=== PATIENT | male | born 1935 | race Caucasian/White ===

== ENCOUNTER 2018-11-30 11:24 | Observation (INO) | payer OTHER ==
--- NOTE | 2018-11-30 11:33 | EDPHY ---
H & P Time Seen by Provider: 11/30/18 11:25 HPI/ROS: CHIEF COMPLAINT: Passed out HISTORY OF PRESENT ILLNESS: Patient had syncope today and was brought in by EMS. They were called at 10:50 a.m.. Per EMS when they arrived his heart rate was in the 30s with a blood pressure of 64 systolic. He awakened with pacing; no atropine was given because IV access was problematic, he arrives with an IO in place and pacing has been stopped with a heart rate in the 50s. Patient remembers feeling dizzy and lightheaded like he was going to pass out and then the ambulance. Currently is asymptomatic, when asked him how he is feeling he says "the center of attention." REVIEW OF SYSTEMS: Eye: no change in vision ENT: no sore throat Cardiac: No chest pain Pulmonary: no cough or SOB Abdomen: no vomiting, diarrhea, abdominal pain Musculoskeletal: no back pain Skin: no rash Neuro: no headache Constitutional: no fever : no urinary symptoms A comprehensive 10 point review of systems is otherwise negative aside from elements mentioned in the history of present illness. PAST MEDICAL HISTORY: Admission in July of 2016 for syncope. Cardiology notes "consideration of more aggressive evaluation for 2nd event."Includes diabetes and hypothyroid. Social history: Nonsmoker General Appearance: Alert and conversant, cooperative. Eyes: No scleral icterus. ENT, Mouth: Normal mucous membranes. Respiratory: Normal respiratory effort, breath sounds equal, lungs are clear to auscultation. Cardiovascular: Regular rate and rhythm. No murmur. Gastrointestinal: Abdomen is soft and non tender. Neurological: Alert, face symmetric, normal motor and sensory in extremities. Skin: Warm and dry, no rashes. Musculoskeletal: No peripheral edema. No calf tenderness and no spinal tenderness. Psychiatric: Not agitated. Emergency Department course/MDM: Patient presents with syncope and bradycardia and hypotension by EMS on arrival. Currently in sinus rhythm. Plan for admission and cardiology consultation for consideration for pacemaker. His medications do not include anything that would account for low heart rate. 1145: Discussed with Dr. Plummer from Cardiology; admission hospitalist service he will consult. Smoking Status: Never smoked Constitutional: Initial Vital Signs Temperature (C) 36.8 C 11/30/18 11:27 Heart Rate 55 L 11/30/18 11:27 Respiratory Rate 16 11/30/18 11:27 Blood Pressure 162/65 H 11/30/18 11:27 O2 Sat (%) 100 11/30/18 11:27 O2 Delivery Mode Room Air Allergies/Adverse Reactions: No Known Allergies Allergy (Unverified 12/17/09 14:32) Home Medications: Medication Instructions Recorded Aspirin [Aspirin 81mg (*)] 81 mg PO BID 07/07/16 Atorvastatin Calcium [Lipitor 10 10 mg PO HS 07/07/16 mg (*)] Donepezil HCl [Aricept] 10 mg PO HS 07/07/16 Levothyroxine [Synthroid 125 mcg 125 mcg PO DAILY06 07/07/16 (*)] Multivitamins [Multivitamin (*)] 1 each PO DAILY 07/07/16 metFORMIN HCL [Metformin HCl ER] 500 mg PO BIDMEAL 07/07/16 Fosinopril 20mg Tablet 20 mg PO DAILY 11/30/18 Medical Decision Making - Diagnostics Imaging Results: Imaging Impressions Chest X-Ray 11/30/18 11:33 Impression: Suspect airways disease with no superimposed acute abnormality identified. Imaging: I viewed and interpreted images myself Differential Diagnosis: Differential diagnosis considered for syncope including but not limited to vasovagal syncope, arrhythmia, dehydration, and blood loss. Consult/Admit Bed Type: [place] [id number] - Data Points Laboratory Results: Laboratory Results 11/30/18 11:30 11/30/18 11:30 11/30/18 11/30/18 11/30/18 11:33 11:31 11:30 WBC RBC Hgb POC Hgb 14.3 gm/dL gm/dL (13.7-17.5) Hct POC Hct 42 % % (40-51) MCV MCH MCHC RDW Plt Count MPV Neut % (Auto) Lymph % (Auto) [place] % (Auto) Eos % (Auto) Baso % (Auto) Nucleat RBC Rel Count Absolute Neuts (auto) Absolute Lymphs (auto) Absolute Monos (auto) Absolute Eos (auto) Absolute Basos (auto) Absolute Nucleated RBC Immature Gran % Immature Gran # POC Sodium 142 mEq/L mEq/L (135-145) Sodium 138 mEq/L mEq/L (135-145) POC Potassium 4.1 mEq/L mEq/L (3.3-5.0) Potassium 4.9 mEq/L mEq/L (3.5-5.2) POC Chloride 104 mEq/L mEq/L (97-110) Chloride 105 mEq/L mEq/L (97-110) Carbon Dioxide 26 mEq/l mEq/l (22-31) POC Total CO2 27 mEq/L mEq/L (22-31) Anion Gap 7 mEq/L mEq/L (6-14) POC BUN 17 mg/dL mg/dL (7-23) BUN 19 mg/dL mg/dL (7-23) Creatinine 0.9 mg/dL mg/dL (0.7-1.3) POC Creatinine 0.9 mg/dL mg/dL (0.7-1.3) Estimated GFR > 60 Glucose 139 mg/dL H mg/dL (70-100) POC Glucose 140 mg/dL H mg/dL (70-100) Calcium 9.3 mg/dL mg/dL (8.5-10.4) POC Troponin I 0.01 ng/mL ng/mL (0.00-0.08) 11/30/18 11:30 WBC 9.50 10^3/uL 10^3/uL (3.80-9.50) RBC 4.81 10^6/uL 10^6/uL (4.40-6.38) Hgb 14.0 g/dL g/dL (13.7-17.5) POC Hgb Hct 42.1 % % (40.0-51.0) POC Hct MCV 87.5 fL fL (81.5-99.8) MCH 29.1 pg pg (27.9-34.1) MCHC 33.3 g/dL g/dL (32.4-36.7) RDW 15.1 % % (11.5-15.2) Plt Count 221 10^3/uL 10^3/uL (150-400) MPV 11.4 fL fL (8.7-11.7) Neut % (Auto) 68.3 % % (39.3-74.2) Lymph % (Auto) 19.3 % % (15.0-45.0) [place] % (Auto) 10.6 % % (4.5-13.0) Eos % (Auto) 0.9 % % (0.6-7.6) Baso % (Auto) 0.3 % % (0.3-1.7) Nucleat RBC Rel Count 0.0 % % (0.0-0.2) Absolute Neuts (auto) 6.48 10^3/uL 10^3/uL (1.70-6.50) Absolute Lymphs (auto) 1.83 10^3/uL 10^3/uL (1.00-3.00) Absolute Monos (auto) 1.01 10^3/uL H 10^3/uL (0.30-0.80) Absolute Eos (auto) 0.09 10^3/uL 10^3/uL (0.03-0.40) Absolute Basos (auto) 0.03 10^3/uL 10^3/uL (0.02-0.10) Absolute Nucleated RBC 0.00 10^3/uL 10^3/uL (0-0.01) Immature Gran % 0.6 % % (0.0-1.1) Immature Gran # 0.06 10^3/uL 10^3/uL (0.00-0.10) POC Sodium Sodium POC Potassium Potassium POC Chloride Chloride Carbon Dioxide POC Total CO2 Anion Gap POC BUN BUN Creatinine POC Creatinine Estimated GFR Glucose POC Glucose Calcium POC Troponin I Point of Care Test Results: Chemistry 11/30/18 11/30/18 11:33 11:31 POC Sodium 142 mEq/L mEq/L (135-145) POC Potassium 4.1 mEq/L mEq/L (3.3-5.0) POC Chloride 104 mEq/L mEq/L (97-110) POC Total CO2 27 mEq/L mEq/L (22-31) POC BUN 17 mg/dL mg/dL (7-23) POC Creatinine 0.9 mg/dL mg/dL (0.7-1.3) POC Glucose 140 mg/dL H mg/dL (70-100) POC Troponin I 0.01 ng/mL ng/mL (0.00-0.08) ISTAT H&H 11/30/18 11:33 POC Hgb 14.3 gm/dL gm/dL (13.7-17.5) POC Hct 42 % % (40-51) Departure - Departure Disposition: [facility] Inpatient Acute Clinical Impression: Bradycardia Syncope Qualifiers: Syncope type: unspecified Qualified Code(s): R55 - Syncope and collapse Condition: Good
[2018-11-30 12:03] LABS: PLATELET COUNT 221 10^3/uL (150-400)
[2018-11-30] MEDS ORDERED: ONDANSETRON DISINTEGRATING 4 MG TAB PO PRN (12:03)
[2018-11-30] MEDS ORDERED: ACETAMINOPHEN 325 MG TAB PO PRN (12:03)
[2018-11-30] MEDS ORDERED: ONDANSETRON 4 MG/2 ML VIAL IVP PRN (12:03)
--- NOTE | 2018-11-30 12:26 | CPEKG ---
Test Reason : OPEN Blood Pressure : / mmHG Vent. Rate : 058 BPM Atrial Rate : 058 BPM P-R Int : 191 ms QRS Dur : 095 ms QT Int : 463 ms P-R-T Axes : 072 -36 045 degrees QTc Int : 455 ms Sinus rhythm Left axis deviation Confirmed by Joseph Kasper ([id number]) on 11/30/2018 12:26:09 PM Referred By: PHYSICIAN ED Confirmed By:Joseph Kasper
--- NOTE | 2018-11-30 13:57 | PDGENHP ---
History and Physical - Chief Complaint syncope - History of Present Illness 83 yo male with h/o dementia, htn, hyperlipidemia presents to ED after near syncopal event while at [facility]. He is a poor historian given his poor memory and history is obtained by his . She says he reported feeling lightheaded and dizzy at [facility] today and thus sat down. He later became diaphoretic and unresponsive, but did not lose tone. His eyes remained open. Given his decreased mentation and clamminess, he was taken to the floor by leaning back his chair with his legs up. A physician came to his side and noted he had a slow HR by palpation of his carotid pulse. EMS was called and his HR was found to be in the 30's with SBP 64. They had difficulty obtaining IV access and an IO line was placed followed by administration of fluids. He was noted to be bradycardic, but no rhythm strips are available from EMS. EMS initiated pacing and upon arrival to the ED, pacing was discontinued and his HR was in the 50's. At the time of my evaluation, his SBP is 160's and HR in the 60's. He feels well. Denies CP, SOB, or dizziness. Of note, he has had 2 prior episodes of syncope in the past 2 years. In the ED, cardiology consult was obtained and he is admitted to the PCU for further evaluation and management. History Information - Allergies/Home Medication List Allergies/Adverse Reactions: No Known Allergies Allergy (Unverified 12/17/09 14:32) Home Medications: Aspirin [Aspirin 81mg (*)] 81 mg PO BID 07/07/16 [Last Taken 07/07/16] Atorvastatin Calcium [Lipitor 10 mg (*)] 10 mg PO HS 07/07/16 [Last Taken ] Donepezil HCl [Aricept] 10 mg PO HS 07/07/16 [Last Taken 07/06/16] Levothyroxine [Synthroid 125 mcg (*)] 125 mcg PO DAILY06 07/07/16 [Last Taken ] Multivitamins [Multivitamin (*)] 1 each PO DAILY 07/07/16 [Last Taken 07/07/16] metFORMIN HCL [Metformin HCl ER] 500 mg PO BIDMEAL 07/07/16 [Last Taken 07/07/16 ] Fosinopril 20mg Tablet 20 mg PO DAILY 02/24/19 [Last Taken Unknown] I have personally reviewed and updated: family history, medical history, social history, surgical history - Past Medical History diabetes type 2, hypertension, hyperlipidemia Additional medical history: Hypothyroidism. Dementia - Surgical History Reports: appendectomy - Family History Positive for: non-pertinent - Social History Smoking Status: Never smoked Additional social history: , lives independently Review of Systems Review of Systems: ROS: 10pt was reviewed & negative except for what was stated in HPI & below Physical Exam Physical Exam: Temp Pulse Resp BP Pulse Ox 36.4 C 61 18 167/76 H 96 11/30/18 12:44 11/30/18 13:04 11/30/18 13:04 11/30/18 13:04 11/30/18 13:04 Constitutional: no apparent distress Eyes: PERRL Ears, Nose, Mouth, Throat: moist mucous membranes Cardiovascular: regular rate and rhythym, systolic murmur Respiratory: no respiratory distress, clear to auscultation Gastrointestinal: normoactive bowel sounds, soft, non-tender abdomen Skin: warm Musculoskeletal: full muscle strength Neurologic: AAOx3 Psychiatric: interacting appropriately, poor memory Lab Data & Imaging Review 11/30/18 11:30 11/30/18 11:30 WBC 9.50 10^3/uL (3.80-9.50) 11/30/18 11:30 RBC 4.81 10^6/uL (4.40-6.38) 11/30/18 11:30 Hgb 14.0 g/dL (13.7-17.5) 11/30/18 11:30 POC Hgb 14.3 gm/dL (13.7-17.5) 11/30/18 11:33 Hct 42.1 % (40.0-51.0) 11/30/18 11:30 POC Hct 42 % (40-51) 11/30/18 11:33 MCV 87.5 fL (81.5-99.8) 11/30/18 11:30 MCH 29.1 pg (27.9-34.1) 11/30/18 11:30 MCHC 33.3 g/dL (32.4-36.7) 11/30/18 11:30 RDW 15.1 % (11.5-15.2) 11/30/18 11:30 Plt Count 221 10^3/uL (150-400) 11/30/18 11:30 MPV 11.4 fL (8.7-11.7) 11/30/18 11:30 Neut % (Auto) 68.3 % (39.3-74.2) 11/30/18 11:30 Lymph % (Auto) 19.3 % (15.0-45.0) 11/30/18 11:30 [place] % (Auto) 10.6 % (4.5-13.0) 11/30/18 11:30 Eos % (Auto) 0.9 % (0.6-7.6) 11/30/18 11:30 Baso % (Auto) 0.3 % (0.3-1.7) 11/30/18 11:30 Nucleat RBC Rel Count 0.0 % (0.0-0.2) 11/30/18 11:30 Absolute Neuts (auto) 6.48 10^3/uL (1.70-6.50) 11/30/18 11:30 Absolute Lymphs (auto) 1.83 10^3/uL (1.00-3.00) 11/30/18 11:30 Absolute Monos (auto) 1.01 10^3/uL (0.30-0.80) H 11/30/18 11:30 Absolute Eos (auto) 0.09 10^3/uL (0.03-0.40) 11/30/18 11:30 Absolute Basos (auto) 0.03 10^3/uL (0.02-0.10) 11/30/18 11:30 Absolute Nucleated RBC 0.00 10^3/uL (0-0.01) 11/30/18 11:30 Immature Gran % 0.6 % (0.0-1.1) 11/30/18 11:30 Immature Gran # 0.06 10^3/uL (0.00-0.10) 11/30/18 11:30 POC Sodium 142 mEq/L (135-145) 11/30/18 11:33 Sodium 138 mEq/L (135-145) 11/30/18 11:30 POC Potassium 4.1 mEq/L (3.3-5.0) 11/30/18 11:33 Potassium 4.9 mEq/L (3.5-5.2) 11/30/18 11:30 POC Chloride 104 mEq/L (97-110) 11/30/18 11:33 Chloride 105 mEq/L (97-110) 11/30/18 11:30 Carbon Dioxide 26 mEq/l (22-31) 11/30/18 11:30 POC Total CO2 27 mEq/L (22-31) 11/30/18 11:33 Anion Gap 7 mEq/L (6-14) 11/30/18 11:30 POC BUN 17 mg/dL (7-23) 11/30/18 11:33 BUN 19 mg/dL (7-23) 11/30/18 11:30 Creatinine 0.9 mg/dL (0.7-1.3) 11/30/18 11:30 POC Creatinine 0.9 mg/dL (0.7-1.3) 11/30/18 11:33 Estimated GFR > 60 11/30/18 11:30 Glucose 139 mg/dL (70-100) H 11/30/18 11:30 POC Glucose 140 mg/dL (70-100) H 11/30/18 11:33 Calcium 9.3 mg/dL (8.5-10.4) 11/30/18 11:30 POC Troponin I 0.01 ng/mL (0.00-0.08) 11/30/18 11:31 Visualized and Interpreted Chest x-ray results: Yes Chest X-Ray results: no infiltrate Visualized and Interpreted EKG results: Yes EKG additional interpertation: sinus bradycardia Assessment & Plan Assessment: Near-syncope - Unclear if this was provoked by bradyarrhythmia or if bradycardia was a result of vagal episode. He has been on Fosinopril without prior concerns for hypotension. No AV carey blockers. Aricept can cause syncope in 2% of population. Discussed case with Dr. Plummer, rehabilitation technician. -monitor on telemetry -echo ordered -may warrant stress test prior to dc -hold aricept, decrease mireya inhibitor to 1/2 dose for now -cardiology considering implantation of LINQ monitor vs PPM, will await further data from telemetry and echo Bradycardia - Pt required pacing upon EMS arrival, did not receive Atropine. HR was 50's upon arrival to ED without pacing. -monitor on telemetry -LINQ vs PPM as above Dementia - Hold Aricept as above Hypertension - Halve Fosinopril given profound hypotension earlier today, but BP now elevated Hyperlipidemia - cont statin Hypothyroidism - cont levothyroxine Full code Dispo - obs
--- NOTE | 2018-11-30 14:39 | PDCARCONS ---
Cardiology Consult Reason for Consult: Syncope. Chief Complaint: Loss of consciousness. Requesting Physician: Dr. Joseph Kasper. History of Present Illness: This is a relatively healthy 83-year-old male seen in consultation on the progressive care unit after experiencing an episode of syncope. Apparently, back in 2016, he had a similar event. At that time, he was seen by Dr. Narciso Alcocer. Following that evaluation was recommended the patient be observed. Was also thought, per the patient's note, that his Aricept dose may have been contributing to the patient's episode of syncope. Fortunately, the patient has done well since then. Up until recently he has been feeling well. His is with him today. He struggles with memory difficulties and, per the , generally does not drink enough fluid. He has not been sick recently. Specifically he has not had any fever, chills or sweats nor has he had any episodes of nausea, vomiting or diarrhea. He woke this morning feeling well, had a light breakfast and per their usual routine went to [facility]. In [facility] she noted that he was feeling lightheaded and dizzy. Apparently immediately sat down where it is not clear whether not he lost consciousness or simply became unresponsive. Apparently, he was sitting upright however was not really interacting. There was a physician in the [facility] who came to his aid. Per the 's report she states that he reported the patient had a slow but pounding heart rate. Apparently, EMS was activated and came to the scene. On arrival was noted that his heart rates were in the 30s with a blood pressure 64 systolic. Apparently they had difficulty placing an IV therefore an intraosseous cannula was placed. The patient received fluid resuscitation and apparently transcutaneous pacing during the ambulance ride over to the emergency department. The patient does, however, not recall these events. Unfortunately, there is no documentation of the patient's rhythm from the EMS transport. I did call [facility] however they were not able to locate any printed data. Since arrival here he has been hemodynamically stable. He feels well. His initial ECG demonstrated sinus rhythm. He has not had any bradycardia on telemetry. He has not had any recent medication changes. He does continue to take Aricept for his dementia and fosinopril for blood pressure control. Neither of these medications have been adjusted. His initial troponin was negative. Currently, he states that he feels back to normal. He had a similar event and 2016 as noted above. History Information - Allergies/Home Medication List Allergies/Adverse Reactions: No Known Allergies Allergy (Unverified 12/17/09 14:32) Home Medications: Aspirin [Aspirin 81mg (*)] 81 mg PO BID 07/07/16 [Last Taken 07/07/16] Atorvastatin Calcium [Lipitor 10 mg (*)] 10 mg PO HS 07/07/16 [Last Taken ] Donepezil HCl [Aricept] 10 mg PO HS 07/07/16 [Last Taken 07/06/16] Levothyroxine [Synthroid 125 mcg (*)] 125 mcg PO DAILY06 07/07/16 [Last Taken ] Multivitamins [Multivitamin (*)] 1 each PO DAILY 07/07/16 [Last Taken 07/07/16] metFORMIN HCL [Metformin HCl ER] 500 mg PO BIDMEAL 07/07/16 [Last Taken 07/07/16 ] Fosinopril 20mg Tablet 20 mg PO DAILY 11/30/18 [Last Taken Unknown] I have personally reviewed and updated: family history, medical history, social history, surgical history Past Medical History: Alzheimer's dementia, history of skin cancer, type 2 diabetes mellitus, gout, hyperlipidemia, hypertension, hypothyroidism, history of thyroid nodule - Surgical History Reports: no pertinent surgical hx - Family History Positive for: non-pertinent - Social History Smoking Status: Never smoked Alcohol Use: None Drug Use: None (He is , accompanied by his and son. They live independently. 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[facility].) Physical Exam Physical Exam: Temp Pulse Resp BP Pulse Ox 36.4 C 61 18 167/76 H 96 11/30/18 12:44 11/30/18 13:04 11/30/18 13:04 11/30/18 13:04 11/30/18 13:04 Constitutional: no apparent distress, appears nourished, not in pain Eyes: PERRL, anicteric sclera, EOMI Ears, Nose, Mouth, Throat: moist mucous membranes, hearing normal, ears appear normal, no oral mucosal ulcers Cardiovascular: regular rate and rhythym, systolic murmur (2/6 systolic ejection mid-peaking murmur left sternal border), No diastolic murmur, No JVD, No edema Peripheral Pulses: 2+: carotid (R), carotid (L) Respiratory: no respiratory distress, no rales or rhonchi, clear to auscultation Gastrointestinal: normoactive bowel sounds, soft, non-tender abdomen, no palpable masses Genitourinary: no bladder fullness, no bladder tenderness Skin: warm, normal color, no rashes or abrasions, no fluctuance, no induration, No mottled Musculoskeletal: full muscle strength, no muscle tenderness, normal joint ROM, no joint effusions Psychiatric: interacting appropriately, not anxious, not encephalopathic, thought process linear Lymph, Heme, Immunologic: no cervical LAD, no supraclavicular LAD Lab and Imaging 11/30/18 11:30 11/30/18 11:30 WBC 9.50 10^3/uL (3.80-9.50) 11/30/18 11:30 RBC 4.81 10^6/uL (4.40-6.38) 11/30/18 11:30 Hgb 14.0 g/dL (13.7-17.5) 11/30/18 11:30 POC Hgb 14.3 gm/dL (13.7-17.5) 11/30/18 11:33 Hct 42.1 % (40.0-51.0) 11/30/18 11:30 POC Hct 42 % (40-51) 11/30/18 11:33 MCV 87.5 fL (81.5-99.8) 11/30/18 11:30 MCH 29.1 pg (27.9-34.1) 11/30/18 11:30 MCHC 33.3 g/dL (32.4-36.7) 11/30/18 11:30 RDW 15.1 % (11.5-15.2) 11/30/18 11:30 Plt Count 221 10^3/uL (150-400) 11/30/18 11:30 MPV 11.4 fL (8.7-11.7) 11/30/18 11:30 Neut % (Auto) 68.3 % (39.3-74.2) 11/30/18 11:30 Lymph % (Auto) 19.3 % (15.0-45.0) 11/30/18 11:30 [place] % (Auto) 10.6 % (4.5-13.0) 11/30/18 11:30 Eos % (Auto) 0.9 % (0.6-7.6) 11/30/18 11:30 Baso % (Auto) 0.3 % (0.3-1.7) 11/30/18 11:30 Nucleat RBC Rel Count 0.0 % (0.0-0.2) 11/30/18 11:30 Absolute Neuts (auto) 6.48 10^3/uL (1.70-6.50) 11/30/18 11:30 Absolute Lymphs (auto) 1.83 10^3/uL (1.00-3.00) 11/30/18 11:30 Absolute Monos (auto) 1.01 10^3/uL (0.30-0.80) H 11/30/18 11:30 Absolute Eos (auto) 0.09 10^3/uL (0.03-0.40) 11/30/18 11:30 Absolute Basos (auto) 0.03 10^3/uL (0.02-0.10) 11/30/18 11:30 Absolute Nucleated RBC 0.00 10^3/uL (0-0.01) 11/30/18 11:30 Immature Gran % 0.6 % (0.0-1.1) 11/30/18 11:30 Immature Gran # 0.06 10^3/uL (0.00-0.10) 11/30/18 11:30 POC Sodium 142 mEq/L (135-145) 11/30/18 11:33 Sodium 138 mEq/L (135-145) 11/30/18 11:30 POC Potassium 4.1 mEq/L (3.3-5.0) 11/30/18 11:33 Potassium 4.9 mEq/L (3.5-5.2) 11/30/18 11:30 POC Chloride 104 mEq/L (97-110) 11/30/18 11:33 Chloride 105 mEq/L (97-110) 11/30/18 11:30 Carbon Dioxide 26 mEq/l (22-31) 11/30/18 11:30 POC Total CO2 27 mEq/L (22-31) 11/30/18 11:33 Anion Gap 7 mEq/L (6-14) 11/30/18 11:30 POC BUN 17 mg/dL (7-23) 11/30/18 11:33 BUN 19 mg/dL (7-23) 11/30/18 11:30 Creatinine 0.9 mg/dL (0.7-1.3) 11/30/18 11:30 POC Creatinine 0.9 mg/dL (0.7-1.3) 11/30/18 11:33 Estimated GFR > 60 11/30/18 11:30 Glucose 139 mg/dL (70-100) H 11/30/18 11:30 POC Glucose 140 mg/dL (70-100) H 11/30/18 11:33 Calcium 9.3 mg/dL (8.5-10.4) 11/30/18 11:30 POC Troponin I 0.01 ng/mL (0.00-0.08) 11/30/18 11:31 A/P Assessment: 1. Syncope. This is his 2nd event, the 1st having occurred back in 2016. Based on his history it is not entirely clear whether he experienced an episode of vasovagal syncope or whether not this was a primary bradyarrhythmia. I think a tachyarrhythmias less likely given the history obtained through the ambulance ride. Unfortunately, we were not provided with any electrocardiographic tracings documenting the patient's arrhythmia. It was stated clearly in the record that he had had a slow heart rate and hypotension. At the present time, he appears back to normal and is hemodynamically stable. His initial ECG did not demonstrate any acute changes that would suggest an underlying ischemic mechanism driving this episode of syncope. In reviewing his medications certainly Aricept can cause bradycardia and hypotension. Additionally, he is on fosinopril which may contribute to hypotension. 2. Murmur. He has a murmur on physical examination that suggests aortic sclerosis. I do not think that this represents stenosis based on his exam findings. Additionally he has no antecedent history of cardiac symptoms with the exception of today syncopal event. 3. History of hypertension. 4. History of Alzheimer's disease. Plan: 1. He will be admitted to telemetry and monitored. 2. I agree with the assessment from his hospitalist team that Aricept should be discontinued. His lisinopril dose was reduced by half. 3. I have ordered an echocardiogram and we will plan to trend his cardiac enzymes overnight. 4. We may consider stress testing depending on his overnight clinical course. 5. Hopefully will get some information either from the ambulance service or from his overnight telemetry monitoring that could potentially shed some light on whether not this represents a primary bradyarrhythmia. If not, there are 2 possible paths that I can see going forward. 1 would be more conservative and involve simply placing a [employer] LINQ to monitor him for future arrhythmias. The other would be slightly more aggressive and proceed with implantation of a permanent pacemaker upfront based on the available data. Review of Systems Review of Systems: - Review of Systems Constitutional: no symptoms reported EENTM: no symptoms reported Respiratory: no symptoms reported Cardiac: see HPI Gastrointestinal/Abdominal: no symptoms reported Genitourinary: no symptoms Musculoskelatal: no symptoms Skin: no symptoms Neurological: no symptoms Hematologic/Lymphatic: no symptoms reported Immunologic/allergic: no symptoms reported All Other Systems: Reviewed and Negative
[2018-11-30] MEDS ORDERED: ATORVASTATIN CALCIUM 10 MG TAB PO SCH (21:00)
[2018-11-30] MEDS: ASPIRIN 81 MG CHEWABLE TAB PO SCH (22:40)
[2018-12-01] MEDS ORDERED: LEVOTHYROXINE 125 MCG TAB PO SCH (06:00)
[2018-12-01] MEDS: ASPIRIN 81 MG CHEWABLE TAB PO SCH (08:36)
[2018-12-01] MEDS ORDERED: LISINOPRIL 10 MG TAB PO SCH (09:00)
--- NOTE | 2018-12-01 11:26 | ECHO ---
[email or web address] [address] Main: [phone] Fax: Transthoracic Echocardiogram Name: KYUNG NUÑEZ MR#: [id number] Study Date: 12/01/2018 Study Time: 07:34 AM Date of : 1935 Age: 83 year(s) Height: 170.2 cm (67 in.) Weight: 79.83 kg (176 lb.) BSA: 1.92 m2 Gender: Male Examination: Echo Indication: Snycope Image Quality: Good Contrast: Requested by: Porfirio Plummer BP: 185 mmHg/85 mmHg Heart Rate: Rhythm: Indication: Snycope Procedure Staff [employer] Rep[employer]: Nohelia Moore RDCS Reading Physician: Jessie Renee MD Requesting Provider: Conclusions: Normal size left ventricle. No LV hypertrophy. Normal global systolic LV function. EF is 73 %. No regional wall motion abnormality. Grade 1 diastolic dysfunction (abnormal relaxation). Normal size right ventricle. Normal RV function. Mild aortic valve regurgitation is present. Mild calcific aortic valve stenosis. Trivial tricuspid valve regurgitation. The pulmonary artery pressure is mildly increased. No pericardial effusion. There is no previous echocardiogram for comparison. Measurements: Chambers Valvular Assessment AV/MV Valvular Assessment TV/PV Normal Normal Normal Name Value Range Name Value Range Name Value Range Ao Lina (MM): 3.8 cm (2.2 cm-3.7 AV Vmax: 2.29 m/s (1 m/s-1.7 TR Vmax: 3.22 mm/s ( - ) cm) m/s) TR PGmax: 41 mmHg ( - ) IVSd (2D): 0.7 cm (0.6 cm-1.1 AV meanP mmHg ( - ) syst. PAP: 46 mmHg ( - ) cm) RYANN (VTI): 1.4 cm ( - ) LVDd (2D): 4.8 cm (4.2 cm-5.9 MV E Vmax: 0.49 m/s ( - ) cm) MV A Vmax: 0.72 m/s ( - ) LVPWd (2D): 0.9 cm (0.6 cm-1 MV E/A: 0.68 ( - ) cm) LVOTd 2.1 cm 2.1 cm mm LVEF (BP): 73 % (>=55 %) Patient: KYUNG NUÑEZ Study Date: 12/01/2018 Page 1 of 2 07:34 AM Continued Measurements: Chambers Valvular Assessment AV/MV Valvular Assessment TV/PV Name Value Name Value Name Value LADs: 4.4 cm MV E' Septal: 0.05 m/s CVP (est.): 5 mmHg LADs Lon.2 cm MV E/E' Septal: 9.40 LA Area: 20.1 cm2 MV E/E' Lateral: 7.80 LA Volume: 57 ml LA Volume Index: 29.7 ml/m2 Findings: Left Ventricle: Normal size left ventricle. No LV hypertrophy. Normal global systolic LV function. EF is 73 %. No regional wall motion abnormality. Grade 1 diastolic dysfunction (abnormal relaxation). Right Ventricle: Normal size right ventricle. Normal RV function. Left Atrium: The left atrium is normal in size. Right Atrium: The right atrium is normal in size. Mitral Valve: Mild-moderate mitral annular calcification. Trivial mitral valve regurgitation. Aortic Valve: Mild aortic cusp calcification is noted. Mild aortic valve regurgitation is present. AV max PG is 21mmHG. AV mean PG is 11mmHG.. Mild calcific aortic valve stenosis. Tricuspid Valve: The tricuspid valve is normal in appearance and function. Trivial tricuspid valve regurgitation. The pulmonary artery pressure is mildly increased. Pulmonic Valve: The pulmonic valve is normal in appearance and function. Aorta: The aorta is normal. Pericardium: No pericardial effusion. Exam Comments: During echo, a short run of tachycardia was noted.. (No Signature Object) Patient: KYUNG NUÑEZ Study Date: 12/01/2018 Page 2 of 2 07:34 AM [id number]
--- NOTE | 2018-12-01 11:31 | HOSPPROG ---
Hospitalist Progress Note Assessment/Plan: Near-syncope - Unclear if this was provoked by bradyarrhythmia or if bradycardia was a result of vasovagal episode. He has been on Fosinopril without prior concerns for hypotension. No AV carey blockers. Aricept can cause syncope in 2% of population. Discussed case with Dr. Renee, ui software developer. Echo showed nl EF, no significant valvular pathology. No pauses or significant bradycardia on telemetry overnight -cont to monitor on telemetry -holding aricept -cardiology considering implantation of LINQ monitor vs PPM Bradycardia - Pt required pacing upon EMS arrival, did not receive Atropine. HR was 50's upon arrival to ED without pacing. -tele reviewed, HR mostly 50's - 70's Left carotid bruit - will check carotid artery u/s Dementia - Hold Aricept as above, would probably dc this altogether given possible association with bradycardia/syncope Hypertension - Resume home dose of mireya inhibitor given rising BP Hyperlipidemia - cont statin Hypothyroidism - cont levothyroxine Full code Dispo - obs, possible dc today after LINQ. Will change to inpt if he gets PPM and needs an additional midnight. Subjective: Pt feels fine. No events overnight. No events on telemetry. He denies CP, SOB, or dizziness. Eating/drinking. No complaints. Objective: Vital Signs Temp Pulse Resp BP Pulse Ox 36.3 C 77 13 158/83 H 92 12/01/18 06:56 12/01/18 06:56 12/01/18 06:56 12/01/18 08:35 12/01/18 06:56 11/30/18 12/01/18 12/02/18 05:59 05:59 05:59 Intake Total 500 Output Total 300 Balance 200 - Physical Exam Constitutional: no apparent distress Eyes: PERRL Ears, Nose, Mouth, Throat: moist mucous membranes Cardiovascular: regular rate and rhythym, systolic murmur Respiratory: no respiratory distress, clear to auscultation Gastrointestinal: normoactive bowel sounds, soft, non-tender abdomen Skin: warm Musculoskeletal: full muscle strength Neurologic: AAOx3 Psychiatric: interacting appropriately ICD10 Worksheet Patient Problems: Problems Problem Status Onset Bradycardia Acute Syncope Acute
--- NOTE | 2018-12-01 12:30 | PDCARPN ---
Cardiology Progress Note Assessment/Plan: Assessment/Plan: 83-year-old male with hypertension, diabetes, dementia admitted with presyncope and intermittent bradycardia. I reviewed his hospital chart, EMS ambulance strips, echo, EKGs, and telemetry. 1. Presyncope and intermittent bradycardia: His episode sounds most consistent with vasovagal/orthostatic symptomatology. He was in yarsanism got up to take communion and felt lightheaded. His admits that he does not drink very much water. By EMS report his systolic blood pressures in the 60s upon arrival and heart rate in the 30s. His telemetry strip from the ambulance shows sinus rhythm with intermittent ventricular capture/pacing. Agree with holding Aricept as this has a reported side effect of hypotension and bradycardia. Of note, TSH was normal in June 2018. Would recommend checking orthostatic vital signs. Discussed options for further monitoring. At this point, there is not a class 1 indication for permanent pacemaker implantation. Would recommend implantation of CONFIRM device for long-term ambulatory monitoring. This will be scheduled today. He may be discharged after this. 2. Hypertension: His lisinopril was held due to reported hypotension in the field. Okay to resume this at this time. 3. Mild valvular heart disease: Ejection fraction normal with mild /mild AR. This is very unlikely to have contributed to his presyncopal event. Echo personally reviewed. 4. Dementia: Hold Aricept for now. 12/01/18 12:33 Subjective: He reports feeling back to baseline. No recurrent dizziness/presyncope. Reviewed/Discussed With: hospitalist Time Spent with Patient: greater than 25 minutes Time Spent with Patient: Greater than 25 minutes spent on this patients care, greater than 50% of time spent counseling, educating, and coordinating care regarding the above mentioned plan. Objective: Vital Signs (8 Hrs) Temp Pulse Resp BP Pulse Ox 12/01/18 08:35 158/83 H 12/01/18 06:56 36.3 C 77 13 185/85 H 92 12/01/18 04:00 36.9 C 81 20 174/73 H 94 Intake/Output (24 Hrs) 11/30/18 12/01/18 12/02/18 05:59 05:59 05:59 Intake Total 500 Output Total 300 Balance 200 Intake: Oral (ml) 500 Output: Urine (ml) 300 Urinal 300 Other: Weight 80.1 kg Number of Voids Toilet 2 Urinal 2 No acute distress. Regular rate and rhythm with soft early systolic ejection murmur at the base. Lungs clear bilaterally wheeze rhonchi rales No lower extremity edema Result Diagrams: 11/30/18 11:30 11/30/18 11:30 Cardiac Labs: Cardiac Lab Results (72 Hrs) 12/01/18 12/01/18 11/30/18 08:05 01:00 16:00 Troponin I 0.013 0.017 < 0.012 EKG: Reviewed: Sinus bradycardia without ischemia Telemetry: Sinus rhythm with occasional periods of sinus bradycardia. No pauses. No tachyarrhythmia. Occasional PVCs. ICD10 Worksheet Patient Problems: Problems Problem Status Onset Syncope Acute Bradycardia Acute
[2018-12-01] MEDS ORDERED: LIDOCAINE 1% 300 MG/30 ML SDV SC ONE (12:54)
[2018-12-01] MEDS ORDERED: LIDOCAINE 1% 300 MG/30 ML SDV ONE (12:57)
--- NOTE | 2018-12-01 13:28 | PDHPUP ---
History & Physical Update H&P update statement: This history and physical update is based on an assessment of the patient which was completed after admission or registration (within 24 hours), but prior to the surgery/procedure. H&P update: H&P reviewed & patient examined, no change in patient's condition since H&P completed
[2018-12-01 15:22] VITALS: BP 188/78
--- NOTE | 2018-12-01 16:13 | ASMTLACE ---
LACE Length of stay for Answers: 1 day current admission Comorbidities - select Answers: Dementia all that apply Diabetes (uncontrolled or controlled) Other Notes: Hypothyroid; HTN; HLD # of Emergency department Answers: 1-2 visits in the last 6 months Score: 7 Date Signed: 12/01/2018 04:12 PM Electronically Signed By:Rose Atkins RN
--- NOTE | 2018-12-01 16:31 | ASDISCHSUM ---
Discharge Information Plan Status:Home with No Needs Medically Cleared to Leave:11/30/2018 Discharge Date:11/30/2018 CM D/C Disposition:Home, Routine, Self-Care ADT D/C Disposition:Home, Routine, Self-Care Projected Discharge Date:11/30/2018 Transportation at D/C: Discharge Delay Reason: Follow-Up Date:11/30/2018 Discharge Slot: Final Diagnosis: Placement Information Patient Contact Information Contact Name:ZONIA Relationship: [address] [place] Alternate Phone: [facility]/Zip Code:[place] [address] Email: Financial Information Financial Class:HMO and PPO Plans Primary Plan Desc:[employer]/ [facility] Primary Plan Number:[id number] Secondary Plan Desc: Secondary Plan Number: Assessment Information LACE LACE Length of stay for Answers: 1 day current admission Comorbidities - select Answers: Dementia all that apply Diabetes (uncontrolled or controlled) Other Notes: Hypothyroid; HTN; HLD # of Emergency department Answers: 1-2 visits in the last 6 months Score: 7 Date Signed: 12/01/2018 04:12 PM Electronically Signed By:Rose Atkins RN Case Management Discharge Plan Note Case Management Discharge Discharge Order Complete? Answers: Yes Patient to Obtain Answers: via Family Medications Transportation Arranged Answers: Family/Friends Family Notified Answers: Yes Discharge Comments Notes: Patient is medically cleared for discharged to home no needs. Date Signed: 12/01/2018 04:29 PM Electronically Signed By:Anabel Escalante RN Intervention Information
--- NOTE | 2018-12-01 19:03 | GDS ---
[f rep st] DISCHARGE SUMMARY DISCHARGE DIAGNOSES: 1. Near syncope. 2. Bradycardia. 3. Dementia. 4. Hypertension. 5. Hyperlipidemia. 6. Hypothyroidism. CONSULTANTS: Dr. Amadou Plummer, Cardiology. IMAGING STUDIES: Echocardiogram December 01, 2018, showed normal left ventricular systolic function with an ejection fraction of 73%, no wall motion abnormalities, grade 1 diastolic dysfunction with mi ld aortic regurgitation, and mild aortic stenosis, and mildly increased pulmonary artery pressure. N o evidence of pericardial effusion. Carotid Doppler study was negative for any flow-limiting stenosis bilaterally. HISTORY: For details of history, please see dictated history and physical dated November 30, 2018. In brief, the patient is an 83-year-old male with a history of dementia, hypertension, and hyperlipid emia, who presented to the emergency department after a near syncopal event. He was apparently in ch urch when he suddenly appeared diaphoretic and became unresponsive. He did not actually lose tone. The paramedics were called, and his heart rate was found to be in the 30s, with a systolic blood pres sure of 64. EMS had difficulty obtaining IV access and he was paced. Upon arrival to the emergency department, pacing was discontinued, and his heart rate remained in the 50s, and he was normotensive. He was admitted to the hospital for further management. HOSPITAL COURSE: The patient admitted to the progressive care unit. Cardiology consult was obtained for consideration of pacemaker. It is unclear if he had a preceding bradyarrhythmia or if his sruthi cardia and hypertension were a result of a vasovagal episode. He had negative orthostatics. His Jj cept is discontinued, as this can cause bradycardia and syncope in 2% of the population, and he has h ad 3 episodes of syncope now since starting Aricept 3 years ago. He has not been on any AV carey blo ckers. He was evaluated by Cardiology, and they implanted a LINQ monitor for ongoing monitoring and abnormal rhythm detection. His echocardiogram did not reveal any significant valvular pathology, as above. He had no further significant bradycardia on telemetry and no pauses. Overall, he did not araiza ve a clear-cut indication for pacemaker, and thus a LINQ monitor was placed for ongoing detection of sruthi or tachyarrhythmias. In the absence of orthostasis, his fosinopril dose is resumed. On the day of discharge, his blood pressure is 158/78, heart rate 56, respiratory rate 14. He is 96% on room air. DISPOSITION: Patient is discharged home in stable condition. FOLLOWUP: 1. Dr. Jessie Renee, [facility]. 2. Dr. Mark Lazaro, primary care. DISCHARGE MEDICATIONS: Please see [employer] for completed outpatient medication list. There are no new medications on discharge. DISCONTINUED MEDICATIONS: Aricept is discontinued for the time being due to the risk this may be con tributory to bradycardia or syncope. /[id number]/MODL
--- NOTE | 2018-12-01 19:08 | CPIP ---
[f rep st] INVASIVE CARDIAC PROCEDURE DATE OF PROCEDURE: 12/01/2018 PROCEDURE PERFORMED: Confirm device implant. INDICATIONS: Unexplained syncope. Need for long-term ambulatory monitoring. COMPLICATIONS: None. DESCRIPTION OF PROCEDURE: Informed consent was obtained. The patient was prepped and draped in ster ile fashion. 1% lidocaine was used for local anesthesia over the left parasternal region. Using sta ndard technique per computer numerical control operator guidelines, an Dale Confirm device was implanted. Incision was cl osed with 2 vikki. Sterile dressing applied. Immediate R-wave readings 0.48-0.53 mV, which is within normal range. CONCLUSIONS: 1. Successful Confirm implantation. Serial #[id number]. 2. Follow up at [facility] in 7 days for wound check and staple removal. 3. Instructions for ambulatory monitoring with the patient and his . /[id number]/MODL
[2018-12-02] MEDS ORDERED: LISINOPRIL 10 MG TAB PO SCH (09:00)
== END 2018-12-01 16:47 | disposition home or self-care (01) ==
LOC: EDUNIT# → F2W 13:07
PROVIDERS: ADMIT Hospitalist; ATTEND Hospitalist
PROC: 0JH602Z Insertion of Monitoring Device into Chest Subcutaneous Tissue and Fascia, Open Approach (ICD-10-PCS; principal; 2018-12-01)
DX: R55 Syncope and collapse (principal); R00.1 Bradycardia, unspecified; I95.9 Hypotension, unspecified; R01.1 Cardiac murmur, unspecified; I65.21 Occlusion and stenosis of right carotid artery; G30.9 Alzheimer's disease, unspecified; I10 Essential (primary) hypertension; E78.5 Hyperlipidemia, unspecified; E03.9 Hypothyroidism, unspecified; E11.9 Type 2 diabetes mellitus without complications; M10.9 Gout, unspecified
CPT/HCPCS: 33285; 71046; 92523; 93005; 93306; 93880; 99285; G0378; 82435-PO; 82565-PO; 82947-PO; 84132-PO; 84295-PO; 84484-ER; 84520-PO; 85014-ER; C1764